=== PATIENT | female | born 1990 | race Caucasian/White ===

== ENCOUNTER 2018-04-15 16:31 | Inpatient (IN) | payer MEDICAID ==
[2018-04-15] MEDS ORDERED: METHYLERGONOVINE 0.2 MG INJ IM ×2 (17:00→19:00)
[2018-04-15] MEDS ORDERED: CARBOPROST 250 MCG INJ IM ×2 (17:00→19:00)
[2018-04-15] MEDS ORDERED: LIDOCAINE 1% (MPF) 30 ML INJ INJ (17:00)
[2018-04-15] MEDS ORDERED: OXYTOCIN 30 UNITS/LR 500 ML IV ×2 (17:00→19:00)
[2018-04-15] MEDS ORDERED: BUTORPHANOL 2 MG INJ IV (17:00)
[2018-04-15] MEDS ORDERED: IBUPROFEN 600 MG TAB PO (17:00)
[2018-04-15 17:08] LABS: ADD MAN DIFF? NO
[2018-04-15 17:11] LABS: WHITE BLOOD COUNT 9.7 10^3/ul (4.8-10.8)
[2018-04-15 17:11] LABS: BASOPHILS % 0.2 % (0.0-2.0); HEMATOCRIT 37.8 % (37.0-47.0); HEMOGLOBIN 12.9 g/dl (12.0-16.0); LYMPHOCYTES # 1.2 10^3/ul (0.8-2.9); LYMPHOCYTES % 12.6 % (15.0-51.0); MEAN CORPUSCULAR HEMOGLOBIN 29.9 pg (29.0-33.0); MEAN CORPUSCULAR HGB CONC 34.1 g/dl (32.0-37.0); MEAN CORPUSCULAR VOLUME 87.7 fl (82.0-101.0); MEAN PLATELET VOLUME 10.8 fl (7.4-10.4); MONOCYTE # 0.6 10^3/ul (0.3-0.9); NEUTROPHIL # 7.9 10^3/ul (1.6-7.5); NEUTROPHILS % 80.6 % (39.0-77.0); PLATELET COUNT 185 10^3/UL (140-415); RED BLOOD COUNT 4.31 10^6/ul (4.20-5.40); RED CELL DISTRIBUTION WIDTH 17.1 % (11.5-14.5)
[2018-04-15] MEDS: LACTATED RINGER'S 1,000 ML IV* (17:22)
[2018-04-15] MEDS: AMPICILLIN 2 GM/NS (PMX) 100 ML IV (17:22)
[2018-04-15 17:26] LABS: PROTIME 12.2 Sec (11.9-14.9)
[2018-04-15 17:27] LABS: PARTIAL THROMBOPLASTIN TIME 27.6 Sec (25.0-35.0)
[2018-04-15] MEDS: OXYTOCIN 30 UNITS/LR 500 ML IV ×2 (17:35→18:32)
[2018-04-15] MEDS: MISOPROSTOL 200 MCG TAB PR (17:42)
[2018-04-15 17:58] LABS: HEPATITIS B SURFACE ANTIGEN NEGATIVE (NEGATIVE)
[2018-04-15] MEDS ORDERED: MISOPROSTOL 200 MCG TAB PR (19:00)
[2018-04-15] MEDS ORDERED: ZOLPIDEM 5 MG TAB PO (19:00)
[2018-04-15] MEDS ORDERED: ONDANSETRON 4 MG INJ IV (19:00)
[2018-04-15] MEDS ORDERED: NACL 0.9% 3 ML SYG IV (19:00)
[2018-04-15] MEDS ORDERED: morphine 2 MG INJ IV (19:00)
[2018-04-15] MEDS ORDERED: ACETAMINOPHEN 325 MG TAB PO (19:00)
[2018-04-15] MEDS ORDERED: WITCH HAZEL/GLYCERIN PAD PR (19:00)
[2018-04-15] MEDS ORDERED: HYDROCODONE/APAP (5/325) TAB PO (19:00)
[2018-04-15] MEDS ORDERED: LANOLIN 7 GM TUBE TOP (19:00)
[2018-04-15] MEDS ORDERED: DIPHENHYDRAMINE 25 MG CAP PO (19:00)
[2018-04-15] MEDS: IBUPROFEN 600 MG TAB PO (19:46)
[2018-04-15 20:49] LABS: RAPID PLASMA REAGIN NONREACTIVE (NR)
[2018-04-15] MEDS ORDERED: AMPICILLIN 1 GM/NS (PMX) 50 ML IV (21:00)
[2018-04-16] MEDS: SENNA/DOCUSATE NA (8.6MG/50MG) TAB PO ×3 (00:01→20:18)
[2018-04-16] MEDS: OXYTOCIN 30 UNITS/LR 500 ML IV (00:05)
[2018-04-16] MEDS: IBUPROFEN 600 MG TAB PO ×5 (06:17→23:03)
[2018-04-16 09:33] LABS: ADD MAN DIFF? NO
[2018-04-16 09:41] LABS: WHITE BLOOD COUNT 8.3 10^3/ul (4.8-10.8)
[2018-04-16 09:41] LABS: BASOPHILS % 0.2 % (0.0-2.0); EOSINOPHILS % 0.2 % (0.0-7.0); HEMOGLOBIN 10.9 g/dl (12.0-16.0); LYMPHOCYTES # 1.9 10^3/ul (0.8-2.9); LYMPHOCYTES % 23.2 % (15.0-51.0); MEAN CORPUSCULAR HEMOGLOBIN 30.4 pg (29.0-33.0); MEAN CORPUSCULAR HGB CONC 34.1 g/dl (32.0-37.0); MEAN CORPUSCULAR VOLUME 89.4 fl (82.0-101.0); MEAN PLATELET VOLUME 11.1 fl (7.4-10.4); MONOCYTE # 0.6 10^3/ul (0.3-0.9); NEUTROPHIL # 5.7 10^3/ul (1.6-7.5); NEUTROPHILS % 68.9 % (39.0-77.0); PLATELET COUNT 170 10^3/UL (140-415); RED BLOOD COUNT 3.58 10^6/ul (4.20-5.40); RED CELL DISTRIBUTION WIDTH 17.3 % (11.5-14.5)
[2018-04-17] MEDS: IBUPROFEN 600 MG TAB PO (05:34)
[2018-04-17] MEDS: SENNA/DOCUSATE NA (8.6MG/50MG) TAB PO (09:35)
[2018-04-17] MEDS: MEASLES,MUMPS,RUBELLA VACCINE INJ SC* (09:36)
== END 2018-04-17 11:05 | disposition home or self-care (01) | DRG 775 ==
LOC: OBT 16:31 → PP1 04-17 05:54 → L-D 16:33 → OBT 16:45 → L-D 16:45 → PP1 21:07
PROVIDERS: Obstetrics & Gynecology
PROC: 10E0XZZ Delivery of Products of Conception, External Approach (ICD-10-PCS; principal; 2018-04-15)
DX: O80 Encounter for full-term uncomplicated delivery (principal); Z3A.37 37 weeks gestation of pregnancy; Z37.0 Single live birth
CPT/HCPCS: 85025; 85610; 85730; 86592; 86850; 86900; 86901; 87340

== ENCOUNTER 2018-05-07 12:33 | Emergency (ER) | payer MEDICAID | END 2018-05-07 16:08 | disposition home or self-care (01) | LOC: FTE 12:33 | DX: O99.89 Other specified diseases and conditions complicating pregnancy, childbirth and the puerperium (principal); M79.641 Pain in right hand; M79.642 Pain in left hand; M25.531 Pain in right wrist; M25.532 Pain in left wrist | CPT/HCPCS: 29125; 99282-25 ==